=== PATIENT | female | born 1990 | race Caucasian/White ===

== ENCOUNTER 2020-07-07 21:21 | Inpatient (IN) | payer OTHER ==
--- OUTSIDE RECORDS SUMMARY | 2020-07-07 21:26 | XMS ---
:1990 Author Organization [facility] Support Name Relationship Address Phone UE, UNEMPLOYED Unavailable Unavailable Unavailable UE Unavailable Unavailable Unavailable KALYANI AHN [employer]NER [address] [address] [address] [address] [place] [address] EDGAR ERVIN SISTER [address] [facility] [address] [place] [address] AZAR ERVIN SI Unavailable Unavailable NA Unavailable [place] [address] [place] [address] edgar ervin Unavailable [address] [place] [address] Re-disclosure Warning The records that you are about to access may contain information from federally- assisted alcohol or drug abuse programs. If such information is present, then the following federally mandated warning applies: This information has been disclosed to you from records protected by federal confidentiality rules (42 CFR part 2). The federal rules prohibit you from making any further disclosure of this information unless further disclosure is expressly permitted by the written consent of the person to whom it pertains or as otherwise permitted by 42 CFR part 2. A general authorization for the release of medical or other information is NOT sufficient for this purpose. The Federal rules restrict any use of the information to criminally investigate or prosecute any alcohol or drug abuse patient.The records that you are about to access may contain highly sensitive health information, the redisclosure of which is protected by Article 27-F of the [facility] Public Health law. If you continue you may haveaccess to information: Regarding HIV / AIDS; Provided by facilities licensed or operated by the [facility] Office of Mental Health; or Provided by the [facility] Office for People With Developmental Disabilities. If such information is present, then the following [facility] mandated warning applies: This information has been disclosed to you from confidential records which are protected by state law. State law prohibits you from making any further disclosure of this information without the specific written consent of the person to whom it pertains, or as otherwise permitted by law. Any unauthorized further disclosure in violation of state law may result in a fine or skilled nursing sentence or both. A general authorization for the release of medical or other information is NOT sufficient authorization for further disclosure. Allergies and Adverse Reactions Type Description Substance Reaction Status Data Source(s ) No Known No Known Allergies No Known eCW3 ( [place] [facility]) No Known No Known Allergies No Known eCW3 ( [place] [facility]) Encounters Encounter Providers Location Date Indications Data Source(s ) Emergency H 04/17/2019 [facility] 03:15:00 PM Medical Cente r EDT Outpatient [facility] 01/23/2019 eCW3 ([facility] A28 12:00:00 AM [facility]) EDT - 01/23/2019 12:00:00 AM EDT Outpatient [facility] 12/23/2018 eCW3 ([facility] A28 12:00:00 AM [facility]) EDT - 12/23/2018 12:00:00 AM EDT Emergency 09/25/2018 [facility] 10:28:00 AM Medical Cente r EST Immunizations Vaccine Date Status Description Data Source(s) Tdap 09/25/2018 01:19:00 PM EST completed S [facility] Medications Medication Brand Start Product Dose Route Administrative [facility] Indications Reaction Description Data Name Date Form Instructions Instructions Source(s) Betamethaso Clotri .0 active Clotrim azole eCW3 ne 0.5 mazole 2018 {appl -Betamethaso (H udson MG/ML / -Betam 12:00: icati ne 1-0.05 % [place] Clotrimazol ethaso 00 AM on_to Heal th e 10 MG/ML ne EDT _affe Care) Topical 1-0.05 cted_ Cream % area} Clotrimazol e-Betametha sone 1-0.05 % Betamethaso Clotri .0 active Clotrim azole eCW3 ne 0.5 mazole 2018 {appl -Betamethaso (H udson MG/ML / -Betam 12:00: icati ne 1-0.05 % [facility] Clotrimazol ethaso 00 AM on_to Heal th e 10 MG/ML ne EDT _affe Care) Topical 1-0.05 cted_ Cream % area} Clotrimazol e-Betametha sone 1-0.05 % Azithromyci Azithr 12/23/ suspend Azithr omycin eCW3 n 250 MG omycin 2018 ed 250 MG (Méndez Oral Tablet 250 MG 12:00: Rive r AM Health EDT Care) Norgestim-E Norges .0 active Norgest im-Et eCW3 Estrad 2018 {tabl h Estrad (Hu dson Triphasic h 12:00: et} Triphasic Juliano er 0.18/0.215/ Estrad 00 AM 0.18/0.215 /0 Health 0.25 MG-25 Tripha EDT .25 MG-25 Ca re) MCG sic MCG 0.18/0 .215/0 .25 MG-25 MCG Benadryl Benadr 12/23/ suspend Benadryl eCW3 Allergy 25 yl 2018 ed Allergy 25 (Hu dson MG Allerg 12:00: MG River y 25 00 AM Health EDT Care) Benadryl Benadr 12/23/ suspend Benadryl eCW3 Allergy 25 yl 2019 ed Allergy 25 (Hu dson MG Allerg 12:00: MG [place] y 25 00 AM Health EDT Care) Norgestim-E Norges .0 active Norgest im-Et eCW3 Estrad 2018 {tabl h Estrad (Hu dson Triphasic h 12:00: et} Triphasic Juliano er 0.18/0.215/ Estrad 00 AM 0.18/0.215 /0 Health 0.25 MG-25 Tripha EDT .25 MG-25 Ca re) MCG sic MCG 0.18/0 .215/0 .25 MG-25 MCG Azithromyci Azithr 12/23/ suspend Azithr omycin eCW3 n 250 MG omycin 2018 ed 250 MG (Méndez Oral Tablet 250 MG 12:00: Rive r AM Health EDT Care) Norelgestro UNK .0 suspend Norelges trom eCW3 min-Eth 2017 {patc ed in-Eth (Méndez Estradiol 12:00: h_to_ Estradiol Ri te 150-35 00 AM skin} 150-35 Health MCG/24HR EDT MCG/24HR Care) Norelgestro UNK .0 suspend Norelges trom eCW3 min-Eth 2017 {patc ed in-Eth (Méndez Estradiol 12:00: h_to_ Estradiol Ri te 150-35 00 AM skin} 150-35 Health MCG/24HR EDT MCG/24HR Care) Amoxicillin Amoxic .0 suspend Amoxic illin eCW3 500 MG Oral illin 2017 {caps ed 500 MG (Hud son Capsule 500 MG 12:00: ule} River 00 AM Health EST Care) Amoxicillin Amoxic .0 suspend Amoxic illin eCW3 500 MG Oral illin 2017 {caps ed 500 MG (Hud son Capsule 500 MG 12:00: ule} [facility] 00 AM Health EST Care) CVS Iron CVS .0 suspend CVS Iron 32 5 eCW3 325 (65 Fe) Iron 2016 {tabl ed (65 Fe) MG ( Méndez MG 325 12:00: et} [facility] (65 00 AM Health Fe) MG EST Care) CVS Iron CVS .0 suspend CVS Iron 32 5 eCW3 325 (65 Fe) Iron 2016 {tabl ed (65 Fe) MG ( Méndez MG 325 12:00: et} [facility] (65 00 AM Health Fe) MG EST Care) Prenat .0 suspend eCW3 Vitamins al 2015 {tabl ed Vitamins (Hudso n 28-0.8 MG Vitami 12:00: et} 28-0.8 MG R iver ns 00 AM Health 28-0.8 EDT Care) MG Prenat .0 suspend eCW3 Vitamins al 2015 {tabl ed Vitamins (Hudso n 28-0.8 MG Vitami 12:00: et} 28-0.8 MG R iver ns 00 AM Health 28-0.8 EDT Care) MG ferrous Ferrou .0 suspend Ferrous eC W3 sulfate 325 s 2013 {tabl ed Sulfate 325 (Méndez MG Oral Sulfat 12:00: et} (65 Fe) MG Ri te Tablet e 325 00 AM Health Ferrous (65 EST Care) Sulfate 325 Fe) MG (65 Fe) MG ferrous Ferrou .0 suspend Ferrous eC W3 sulfate 325 s 2013 {tabl ed Sulfate 325 (Méndez MG Oral Sulfat 12:00: et} (65 Fe) MG Ri te Tablet e 325 00 AM Health Ferrous (65 EST Care) Sulfate 325 Fe) MG (65 Fe) MG Meclizine Mecliz .0 suspend Meclizin e eCW3 Hydrochlori ine 2013 {tabl ed HCl 25 MG (H udson de 25 MG HCl 25 12:00: et_as [facility] Oral Tablet MG 00 AM _need Health Meclizine EST ed} Care) HCl 25 MG Omeprazole Omepra .0 suspend Omepraz ole eCW3 20 MG zole 2013 {tabl ed 20 mg (Méndez Delayed 20 mg 12:00: et} [place] Release 00 AM Health Oral Tablet EST Care) Omeprazole 20 mg Meclizine Mecliz .0 suspend Meclizin e eCW3 Hydrochlori ine 2013 {tabl ed HCl 25 MG (H udson de 25 MG HCl 25 12:00: et_as [place] Oral Tablet MG 00 AM _need Health Meclizine EST ed} Care) HCl 25 MG Omeprazole Omepra .0 suspend Omepraz ole eCW3 20 MG zole 2013 {tabl ed 20 mg (Méndez Delayed 20 mg 12:00: et} [place] Release 00 AM Health Oral Tablet EST Care) Omeprazole 20 mg Cephalexin cephal 1 complet July t 500 MG Oral exin ed Chet Capsule 500 mg Medical cephalexin Capsul Center 500 mg e, Capsule, Ordere Ordered By: d By: Abiel Blancas, feli FNPDirectio Yonny, ns: 1 FNPDir capsule ection oral twice s: 1 a day capsul e oral twice a day Amoxicillin amoxic 1 complet Misbah nt 500 MG Oral illin ed Chet Capsule 500 mg Medical amoxicillin Capsul Center 500 mg e, Capsule, Ordere Ordered By: d By: Jermaine Bg Kishor d Isreal, Kishor MDDirection Kirkwo s: 1 od, capsule MDDire oral every ctions eight hours : 1 capsul e oral every eight hours Acetaminoph acetam 2 complet Tylenol Saint en 325 MG inophe ed Chet Oral Tablet n Medical [Tylenol] (Tylen Center acetaminoph ol) en 325 mg (Tylenol) Tablet 325 mg , Tablet, Ordere Ordered By: d By: Kishor Wynn MDDirection Kirkwo s: 2 tablet od, oral every MDDire six hours ctions PRN pain : 2 tablet oral every six hours PRN pain Insurance Providers Payer name Policy type Policy ID Covered Covered democrat's Policy P divina / Coverage democrat ID relationship to Uriostegui Inf ormation type uriostegui MVP [place] [id number] [place] [id number] HMO O MVP/HHP O [id number] 01 [id number] [id number] S [id number] Vision D Warren [facility] [id number] S [id number] 1 Options [facility] [id number] S [id number] 1 [facility]FS [facility] [id number] S [id number] 01 Managed Care Medicaid [id number] S [id number] Regular Clinic Visit Problems, Conditions, and Diagnoses Code Display Name Description Problem Type Effective Data Sour ce(s) Dates E66.9 Obesity Obesity Problem 08/06/2017 eCW3 ([place] 12:00:00 [facility]) N83.202 Cyst of left Ovarian cyst, Problem 08/06/2017 eCW3 ([facility] son ovary left 12:00:00 [facility]) 268.9 Vitamin D Vitamin D Problem 10/04/2014 eCW3 ([place] deficiency deficiency 12:00:00 [facility]) 280.9 Iron deficiency Iron deficiency Problem 10/04/2014 eCW3 ([place] anemia anemia 12:00:00 [facility]) 493.90 Asthma Asthma Problem eCW3 ([facility]) 477.8 Allergic rhinitis ALLERGIC RHINITIS Problem eCW3 ([facility]) 626.4 Irregular Irregular Problem eCW3 ([place] menstrual cycle menstrual cycle [facility]) 789.09 Abdominal pain Abdominal pain, Problem eCW3 ([place] other specified [facility] Care) 278.00 Obesity OBESITY NOS Problem eCW3 ([facility]) Z3A.01 Less than 8 weeks LESS THAN 8 WEEKS Diagnosis 04/17/2019 [facility] gestation of GESTATION OF 03:15:00 PM Medical C enter EDT O26.891 Other specified OTH Diagnosis 04/17/2019 [facility] related RELATED 03:15:00 PM Medica l Center conditions, first CONDITIONS, FIRST EDT trimester TRIMESTER R10.30 Lower abdominal LOWER ABDOMINAL Diagnosis 04/17/2019 [facility] pain, unspecified PAIN, UNSPECIFIED 03:15:00 PM Medical Center EDT 599.0 URINARY TRACT URIN TRACT Diagnosis 12/12/2018 FREYA (M beny INFECTION SITE INFECTION 03:57:19 PM Abiel NOT SPECIFIED EST [facility]) J45.909 Unspecified UNSPECIFIED Diagnosis 09/25/2018 [facility]ino asthma, ASTHMA, 10:28:00 AM Medical Cente r uncomplicated UNCOMPLICATED EST Y99.9 Unspecified UNSPECIFIED Diagnosis 09/25/2018 [facility] external cause EXTERNAL CAUSE 10:28:00 AM Medic al Center status STATUS EST Y92.512 Supermarket, SUPERMARKET, Diagnosis 09/25/2018 [facility] [employer] store or market STORE OR MARKET 10:28:00 AM Med ical Center as the place of PLACE EST occurrence of the external cause Y93.9 Activity, ACTIVITY, Diagnosis 09/25/2018 [facility] unspecified UNSPECIFIED 10:28:[address] EST W23.1XXA Caught, crushed, CAUGHT, CRUSH, Diagnosis 09/25/2018 July dayana [facility] jammed, or JAMMED, OR 10:28:00 AM Medical Cente r pinched between PINCHED BETW EST stationary STATIONRY OBJ, objects, initial INIT encounter S61.311A Laceration LACERATION W/O FB Diagnosis 09/25/2018 [facility] Hinosn osephs without foreign OF L IDX FNGR W 10:28:00 AM Med ical Center body of left DAMAGE TO NAIL, EST index finger with INIT damage to nail, initial encounter Results ID Date Data Source Urinalysis.[id number] 04/17/2019 04:17:00 PM EDT [facility] 0 Name Value Range Interpretation Description Data Sup porting Code Source(s) Document(s ) Color of Urine YELLOW <content Saint styleCode="Gregor Chet d">Color, Medical Urine Center </content>YELL OW <content styleCode="Svetlana lics"> (YELLOW )</content> UNK CLEAR <content Saint styleCode="Gregor Chet d">Urine Medical Clarity Center </content>DANIEL R <content styleCode="Svetlana lics"> (CLEAR )</content> Specific 1.015-1.02 Below low normal <content Saint gravity of 5 styleCode="Gregor Chet Urine by Test d">Urine Medical strip Specific Center [place] </content><= 1.005 L<content styleCode="Svetlana lics"> (1.015-1.025 )</content> Glucose NEGATIVE <content Saint [Mass/volume] styleCode="Gregor Chet in Urine by d">Urine Medical Test strip Glucose Center </content>NEGA TIVE MG/DL<content styleCode="Svetlana lics"> (NEGATIVE MG/DL)</conten t> UNK NEGATIVE <content Saint styleCode="Gregor Chet d">Urine Medical Bilirubin Center </content>NEGA TIVE <content styleCode="Svetlana lics"> (NEGATIVE )</content> Ketones NEGATIVE <content Saint [Mass/volume] styleCode="Gregor Chet in Urine by d">Urine Medical Test strip Ketone Center </content>NEGA TIVE MG/DL<content styleCode="Svetlana lics"> (NEGATIVE MG/DL)</conten t> Hemoglobin NEGATIVE <content Saint [Presence] in styleCode="Gregor Chet Urine by Test d">Urine Blood Medical strip </content>NEGA Center TIVE <content styleCode="Svetlana lics"> (NEGATIVE )</content> Leukocyte NEGATIVE <content Saint esterase styleCode="Gregor Chet [Presence] in d">Urine Medical Urine by Test Leukocyte Center strip </content>NEGA TIVE <content styleCode="Svetlana lics"> (NEGATIVE )</content> Urobilinogen 0.2-1.0 <content Saint [Units/volume] styleCode="Gregor Chet in Urine by d">Urine Medical Test strip Urobilinogen Center </content>1.0 MG/DL<content styleCode="Svetlana lics"> (0.2-1.0 MG/DL)</conten t> Protein NEGATIVE <content Saint [Mass/volume] styleCode="Gregor [facility] in Urine by d">Urine Medical Test strip Protein Center </content>NEGA TIVE MG/DL<content styleCode="Svetlana lics"> (NEGATIVE MG/DL)</conten t> Nitrite NEGATIVE <content Saint [Presence] in styleCode="Gregor Rosenberg Urine by Test d">Urine Medical strip Nitrite Center </content>NEGA TIVE <content styleCode="Svetlana lics"> (NEGATIVE )</content> pH of Urine by 4.5-8.0 <content Saint Test strip styleCode="Gregor Daviss d">Urine pH Medical </content>6.0 Center <content styleCode="Svetlana lics"> (4.5-8.0 )</content> ID Date Data Source Liver 04/17/2019 04:17:00 PM EDT [facility] Profile.[id number] Name Value Range Interpretation Description Data Sup porting Code Source(s) Document(s ) Aspartate 14-36 <content [facility] aminotransferase styleCode="Bold"> Luis hs [Enzymatic Aspartate Medical activity/volume] Aminotransferase Center in Serum or Plasma (AST) </content>36 IU/L<content styleCode="Italic s"> (14-36 IU/L)</content> Alanine 7-30 <content [facility] aminotransferase styleCode="Bold"> Luis hs [Enzymatic Alanine Medical activity/volume] Aminotransferase Center in Serum or Plasma (ALT) </content>12 IU/L<content styleCode="Italic s"> (7-30 IU/L)</content> Albumin 3.5-5.0 <content Saint [Mass/volume] in styleCode="Bold"> Luis hs Serum or Plasma Albumin Medical </content>4.3 Center G/DL<content styleCode="Italic s"> (3.5-5.0 G/DL)</content> Alkaline 38-126 <content [facility] phosphatase styleCode="Bold"> Chet [Enzymatic Alkaline Medical activity/volume] Phosphatase (ALP) Cente r in Serum or Plasma </content>62 IU/L<content styleCode="Italic s"> (38-126 IU/L)</content> Bilirubin.total 0.2-1.3 <content Saint [Mass/volume] in styleCode="Bold"> Luis hs Serum or Plasma Bilirubin Total Medical </content>0.8 Center MG/DL<content styleCode="Italic s"> (0.2-1.3 MG/DL)</content> UNK 0.0-0.3 <content Saint styleCode="Bold"> Chet Bilirubin, Direct Medical </content>< 0.2 Center MG/DL<content styleCode="Italic s"> (0.0-0.3 MG/DL)</content> ID Date Data Source HematologyRou.[id number] 04/17/2019 04:17:00 PM EDT Misbah nt [facility] 0400 Name Value Range Interpretation Description Data Sup porting Code Source(s) Document(s ) Erythrocyte mean 26.0-34. <content [facility] corpuscular 0 styleCode="Bold Chet hemoglobin ">Mean Medical [Entitic mass] Corposcular Center by Automated Hemoglobin count </content>27.8 PG<content styleCode="Ital ics"> (26.0-34.0 PG)</content> Leukocytes 4.4-11.0 <content Saint [#/volume] in styleCode="Bold Chet Blood by ">White Blood Medical Automated count Cell Count Center </content>9.44 KCUMM<content styleCode="Ital ics"> (4.4-11.0 KCUMM)</content > Hematocrit 36.0-46. Below low normal <content Saint [Volume 0 styleCode="Bold Chet Fraction] of ">Hematocrit Medical Blood by </content>34.9 Center Automated count % L<content styleCode="Ital ics"> (36.0-46.0 %)</content> Erythrocyte mean 80.0-100 <content Saint corpuscular .0 styleCode="Bold Chet volume [Entitic ">Mean Medical volume] by Corpuscular Center Automated count Volume </content>81.5 FL<content styleCode="Ital ics"> (80.0-100.0 FL)</content> Erythrocytes 4.0-5.1 <content Saint [#/volume] in styleCode="Bold Chet Blood by ">Red Blood Medical Automated count Cell Count Center </content>4.28 MCUMM<content styleCode="Ital ics"> (4.0-5.1 MCUMM)</content > Hemoglobin 12.3-16. Below low normal <content Saint [Mass/volume] in 0 styleCode="Bold Chet Blood ">Hemoglobin Medical </content>11.9 Center G/DL L<content styleCode="Ital ics"> (12.3-16.0 G/DL)</content> Erythrocyte mean 32.0-37. <content [facility] corpuscular 0 styleCode="Bold Chet hemoglobin ">Mean Corpus. Medical concentration Hgb Center [Mass/volume] by Concentration Automated count (MCHC) </content>34.1 G/DL<content styleCode="Ital ics"> (32.0-37.0 G/DL)</content> Platelet mean 8.0-11.0 Above high <content Saint volume [Entitic normal styleCode="Bold Chet volume] in Blood ">Mean Platelet Medical by Automated Volume Center count </content>12.4 FL H<content styleCode="Ital ics"> (8.0-11.0 FL)</content> UNK 0 <content Saint styleCode="Bold Chet ">Nucleated Red Medical Blood Cell Center </content>0.0 /100<content styleCode="Ital ics"> (0 /100)</content> Platelets 130-400 <content Saint [#/volume] in styleCode="Bold Chet Blood by ">Platelet Medical Automated count Count Center </content>158 KCUMM<content styleCode="Ital ics"> (130-400 KCUMM)</content > Erythrocyte 11.5-14. <content Saint distribution 5 styleCode="Bold Chet width [Ratio] by ">Red Cell Medical Automated count Distribution Center Width </content>14.0 %<content styleCode="Ital ics"> (11.5-14.5 %)</content> UNK 0.0 <content Saint styleCode="Bold Chet ">Nucleated Red Medical Blood Cell Center Count </content>0.00 KCUMM<content styleCode="Ital ics"> (0.0 KCUMM)</content > UNK 1.6-4.9 Above high <content Saint normal styleCode="Bold Chet ">Immature Medical Platelet Center Fraction </content>10.3 % H<content styleCode="Ital ics"> (1.6-4.9 %)</content> ID Date Data Source GFR(Creatinine).[id number] 04/17/2019 04:17:00 PM EDT [facility] 0-0400 Name Value Range Interpretation Code Description Data Venecia rce(s) Supporting Document(s ) UNK > 60 <content [facility] styleCode="Bold"> Medical Cent er EGFR </content>127 GFR<content styleCode="Italic s"> (> 60 GFR)</content> ID Date Data Source STEVEMROUTINECCDA.[id number] 04/17/2019 04:17:00 PM EDT [facility] -0400 Name Value Range Interpretation Description Data Sup porting Code Source(s) Document(s ) UNK 30-110 <content Chet styleCode="Bold Medical ">Amylase Center </content>76 IU/L<content styleCode="Ital ics"> (30-110 IU/L)</content> Lipase 23-300 <content [facility] [Enzymatic styleCode="Bold Medical activity/vo ">Lipase Center lume] in </content>165 Serum or IU/L<content Plasma styleCode="Ital ics"> (23-300 IU/L)</content> ID Date Data Source [facility].[id number] 04/17/2019 04:17:00 PM EDT [facility] Name Value Range Interpretation Description Data Sup porting Code Source(s) Document(s ) Sodium 137-145 <content Saint [Moles/volume] in styleCode="Bold"> Hong phs Serum or Plasma Sodium Medical </content>138 Center MEQ/L<content styleCode="Italic s"> (137-145 MEQ/L)</content> Carbon dioxide, 22-30 <content [facility] total styleCode="Bold"> Chet [Moles/volume] in Carbon Dioxide Medical Serum or Plasma </content>23 Center MEQ/L<content styleCode="Italic s"> (22-30 MEQ/L)</content> Potassium <content Saint [Moles/volume] in styleCode="Bold"> Hong [facility] Serum or Plasma Potassium Medical </content>Test Center not performed. MEQ/L (Reference Range: not available)
Chloride 98-107 <content Saint [Moles/volume] in styleCode="Bold"> Hong phs Serum or Plasma Chloride Medical </content>105 Center MEQ/L<content styleCode="Italic s"> (98-107 MEQ/L)</content> Creatinine 0.5-1.3 <content Saint [Mass/volume] in styleCode="Bold"> Luis hs Serum or Plasma Creatinine Medical </content>0.6 Center MG/DL<content styleCode="Italic s"> (0.5-1.3 MG/DL)</content> UNK 7-17 <content Saint styleCode="Bold"> Chet BUN </content>12 Medical MG/DL<content Center styleCode="Italic s"> (7-17 MG/DL)</content> Alanine 7-30 <content [facility] aminotransferase styleCode="Bold"> Luis hs [Enzymatic Alanine Medical activity/volume] Aminotransferase Center in Serum or Plasma (ALT) </content>12 IU/L<content styleCode="Italic s"> (7-30 IU/L)</content> Calcium 8.4-10. <content Saint [Mass/volume] in 2 styleCode="Bold"> Luis hs Serum or Plasma Calcium Medical </content>9.5 Center MG/DL<content styleCode="Italic s"> (8.4-10.2 MG/DL)</content> Alkaline 38-126 <content [facility] phosphatase styleCode="Bold"> Chet [Enzymatic Alkaline Medical activity/volume] Phosphatase (ALP) Cente r in Serum or Plasma </content>62 IU/L<content styleCode="Italic s"> (38-126 IU/L)</content> Aspartate 14-36 <content [facility] aminotransferase styleCode="Bold"> Luis hs [Enzymatic Aspartate Medical activity/volume] Aminotransferase Center in Serum or Plasma (AST) </content>36 IU/L<content styleCode="Italic s"> (14-36 IU/L)</content> UNK > 60 <content Saint styleCode="Bold"> Chet EGFR Medical </content>127 Center GFR<content styleCode="Italic s"> (> 60 GFR)</content> Glucose 74-106 <content Saint [Mass/volume] in styleCode="Bold"> Luis hs Serum or Plasma Glucose Medical </content>85 Center MG/DL<content styleCode="Italic s"> (74-106 MG/DL)</content> Albumin 3.5-5.0 <content Saint [Mass/volume] in styleCode="Bold"> Luis hs Serum or Plasma Albumin Medical </content>4.3 Center G/DL<content styleCode="Italic s"> (3.5-5.0 G/DL)</content> Bilirubin.total 0.2-1.3 <content Saint [Mass/volume] in styleCode="Bold"> Luis hs Serum or Plasma Bilirubin Total Medical </content>0.8 Center MG/DL<content styleCode="Italic s"> (0.2-1.3 MG/DL)</content> Procedure Social History Code Duration Value Status Description Data Source(s ) Smoking 04/17/2019 Denies Ever completed Denies Ever Smoked [facility] 03:48:00 PM EDT Smoked Medical C enter Smoking 04/17/2019 Denies Ever completed Denies Ever Smoked [facility] 03:22:00 PM EDT Smoked Medical C enter Smoking 04/17/2019 Denies Ever completed Denies Ever Smoked [facility] 03:22:00 PM EDT Smoked Medical C enter Smoking 01/23/2019 Never Smoker completed Never Smoker eCW3 ([place] [facility] 12:00:00 AM [facility]) Smoking 01/23/2019 Never Smoker completed Never Smoker eCW3 ([place] 12:[facility]:00 AM [facility]) Smoking 09/25/2018 Denies Ever completed Denies Ever Smoked [facility] 01:08:00 PM EST Smoked Medical C enter Smoking 09/25/2018 Denies Ever completed Denies Ever Smoked [facility] 10:50:00 AM EST Smoked Medical C enter Smoking 09/13/2018 Denies Ever completed Denies Ever Smoked [facility] 10:55:00 AM EST Smoked Medical C enter Smoking 09/13/2018 Denies Ever completed Denies Ever Smoked [facility] 10:33:00 AM EST Smoked Medical C enter Never Smoker completed Never Smoker [facility]CW[facility] Never Smoker completed Never Smoker eCW3 ([facility]) Vital Signs ID Date Data Source UNK Name Value Range Interpretation Code Description Data Source(s) Body temperature 36.310355 36.253669 [facility] Respiratory rate 20 /min 20 /min [facility] Heart rate 75 /min 75 /min [facility] Diastolic blood 56 mm[Hg] 56 mm[Hg] [facility] Systolic blood 109 mm[Hg] 109 mm[Hg] [facility] Body weight 86.692514 kg 86.973757 kg [facility] Body temperature 36.654075 36.921162 [facility] Respiratory rate 18 /min 18 /min [facility] Oxygen saturation 99 % 99 % [facility] in Arterial blood [facility] Center by Pulse oximetry Heart rate 86 /min 86 /min [facility] Body height 164.241151 164.838312 cm [facility] Diastolic blood 70 mm[Hg] 70 mm[Hg] [facility] pressure Medical Center Systolic blood 133 mm[Hg] 133 mm[Hg] [facility] Body mass index 31.5 kg/m2 31.5 kg/m2 [facility] (BMI) [Ratio] [facility] Diastolic blood 72 mm[Hg] 72 mm[Hg] eCW3 ([facility]) Systolic blood 112 mm[Hg] 112 mm[Hg] eCW3 ([facility]) Body temperature 98.4 [degF] 98.4 [degF] eCW3 ( [facility]) Body mass index 34.89 kg/m2 34.89 kg/m2 eCW3 ([facility] (BMI) [Ratio] [facility]) Body weight 197 [lb_av] 197 [lb_av] eCW3 ([facility]) Body height 63 [in_i] 63 [in_i] eCW3 ([facility]) Diastolic blood 70 mm[Hg] 70 mm[Hg] eCW3 ([facility]) Systolic blood 118 mm[Hg] 118 mm[Hg] eCW3 ([facility]) Body temperature 98.2 [degF] 98.2 [degF] eCW3 ( [facility]) Body mass index 36.31 kg/m2 36.31 kg/m2 eCW3 ([facility] (BMI) [Ratio] [facility]) Body weight 205 [lb_av] 205 [lb_av] eCW3 ([facility]) Body height 63 [in_i] 63 [in_i] eCW3 ([facility]) Body weight 86.668794 kg 86.451104 kg [facility] Body temperature 36.506204 36.338201 [facility] Respiratory rate 17 /min 17 /min [facility] Oxygen saturation 100 % 100 % [facility] in Arterial blood [facility] Center by Pulse oximetry Heart rate 79 /min 79 /min [facility] Body height 165.819622 165.182803 cm [facility] Diastolic blood 70 mm[Hg] 70 mm[Hg] [facility] pressure Medical Center Systolic blood 138 mm[Hg] 138 mm[Hg] [facility] pressure [facility] Center Body mass index 31.6 kg/m2 31.6 kg/m2 [facility] [place] (BMI) [Ratio] [facility] Body weight 65.406082 kg 65.552896 kg [facility] Measured Medical Center Body temperature 36.509227 36.251729 [facility] Respiratory rate 18 /min 18 /min [facility] Deprecated Oxygen 98 % 98 % [facility] saturation in [facility] Capillary blood by Oximetry Heart rate 65 /min 65 /min [facility] Body height 160.514536 160.483386 cm [facility] cm Medical Center Systolic blood 65 mm[Hg] 65 mm[Hg] [facility] pressure [facility] Center Diastolic blood 138 mm[Hg] 138 mm[Hg] [facility] pressure [facility] Center Body mass index 25.6 kg/m2 25.6 kg/m2 [facility] (BMI) [Ratio] [facility] Patient Treatment Plan of Care Planned Activity Planned Date Details Description Data Source (s) Betamethasone 0.5 MG/ML / 01/23/2019 12:00:00 eCW3 ([facility] Clotrimazole 10 MG/ML [facility]) Topical Cream Betamethasone 0.5 MG/ML / 01/23/2019 12:00:00 eCW3 ([facility] Clotrimazole 10 MG/ML [facility]) Topical Cream Amoxicillin 500 MG Oral July t [facility] Medical Capsule Center Acetaminophen 325 MG Oral Sa int [facility] Medical Tablet [Tylenol] Center Cephalexin 500 MG Oral [facility] Capsule [place]
--- NOTE | 2020-07-07 21:54 | PD.OB.PROG ---
Past Medical History - Primary Care Physician Documenting Provider Type: Laborist - Admission Chief Complaint: 40.3 weeks . pelvic pain History Source: Patient Limitations to Obtaining History: No Limitations - Nursing Documentation Maternal Triage Index: Maternal Triage Index ( Priority 3, Prompt MFTI) Nursing Documentation Reviewed: Yes - Past Medical History ...: 6 ...Para: 2 ...Term: 2 ...: 0 ...Spon : 0 ...Induced : 3 ...Living Children: 2 ...LMP: 09/30/20 ... Weeks Gestation by Dates: 39.5 ...EDC by Dates: 07/09/20 ...EDC by Sono: 07/04/20 - Past Surgical History Past Surgical History: Yes: None - Smoking History Smoking history: Never smoked Have you smoked in the past 12 months: No Aproximately how many cigarettes per day: 0 - Alcohol/Substance Use Hx Alcohol Use: No History of Substance Use: reports: None - Social History Usual Living Arrangement: With Spouse History of Recent Travel: No Review of Systems - Review of Systems Constitutional: reports: No Symptoms Eyes: reports: No Symptoms HENT: reports: No Symptoms Neck: reports: No Symptoms Cardiovascular: reports: No Symptoms Respiratory: reports: No Symptoms Gastrointestinal: reports: No Symptoms Genitourinary: reports: No Symptoms Breasts: reports: No Symptoms Reported Musculoskeletal: reports: No Symptoms Integumentary: reports: No Symptoms Neurological: reports: No Symptoms Endocrine: reports: No Symptoms Hematology/Lymphatic: reports: No Symptoms Psychiatric: reports: No Symptoms Physical Exam - Obstetrical Constitutional: Yes: Well Nourished, No Distress, Calm Eyes: Yes: WNL, Conjunctiva Clear, EOM Intact HENT: Yes: WNL, Atraumatic, Normocephalic Neck: Yes: WNL, Supple, Trachea Midline Cardiovascular: Yes: WNL, Regular Rate and Rhythm Lungs: Clear to auscultation Breast(s): Yes: WNL - Abdominal Exam/OB Fundal Height: 38 Number of Fetuses: Single Presentation: Vertex Regularity: Irritability Intensity: Mild Monitor Mode: External Heart Rate Location: [facility] Category: I Accelerations: Non-Uniform Decelerations: None - Vaginal Exam/OB Vaginal Exam Deferred: No Vaginal Bleeding: No Speculum Exam: No Dilatation (cm): 2 cm Effacement (%): 80 Amniotic Membrane Status: Intact Nitrazine Test: Negative Presentation: Vertex/Position Station: -3 - Physical Exam Musculoskeletal: Yes: WNL Extremities: Yes: WNL Edema: Yes Edema: LLE: Trace, RLE: Trace Deep Tendon Reflex Grade: Normal +2 Problem List - Problems (1) , post-term Code(s): O48.0 - POST-TERM (2) Abdominal pain affecting Code(s): O26.899 - OTH RELATED CONDITIONS, UNSPECIFIED TRIMESTER; R10.9 - UNSPECIFIED ABDOMINAL PAIN Assessment/Plan fhr cat 1
[2020-07-07] MEDS ORDERED: DINOPROSTONE 10 MG VAGINAL SUPPOSITORY VG ONE (22:38)
[2020-07-07] MEDS ORDERED: PROMETHAZINE HCL 25 MG/1 ML VIAL IVPUSH ONE (22:40)
[2020-07-07] MEDS ORDERED: BUTORPHANOL TARTRATE 1 MG/ML VIAL IVPUSH PRN (22:40)
[2020-07-07] MEDS ORDERED: DEXTROSE 5%-LACTATED RINGERS 1,000 ML IV SCH (22:45)
--- NOTE | 2020-07-07 22:47 | HP ---
Past Medical History - Primary Care Physician PCP:: Anand Rodriguez - Admission Chief Complaint: 40.3 weeks,for cervidil induction History of Present Illness: 30 yo f 032 40.3 weeks, c/o low abdominal pressure and pain , cx 2 cm 70 vx -3 mi, fhr cat 1, no contraction patient requesting to be induced , does not want to go home, cervidil risks discussed History Source: Patient Limitations to Obtaining History: No Limitations - Past Medical History ...: 6 ...Para: 2 ...Term: 2 ...: 0 ...Spon : 0 ...Induced : 3 ...Living Children: 2 ...LMP: 09/30/20 ... Weeks Gestation by Dates: 39.5 ...EDC by Dates: 07/09/20 ...EDC by Sono: 07/04/20 Heme/Onc: Yes: Anemia (had blood transfusion after her last misscarige) - Past Surgical History Past Surgical History: Yes: None Hx Myomectomy: No Hx Transabdominal Cerclage: No - Smoking History Smoking history: Never smoked Have you smoked in the past 12 months: No Aproximately how many cigarettes per day: 0 - Alcohol/Substance Use Hx Alcohol Use: No History of Substance Use: reports: None - Social History Usual Living Arrangement: Yes: With Spouse History of Recent Travel: No Home Medications - Allergies Allergies/Adverse Reactions: Allergies Allergy/AdvReac Type Severity Reaction Status Date / Time No Known Allergies Allergy Verified 07/06/20 08:43 - Home Medications Home Medications: Ambulatory Orders Tablet 1 tab PO DAILY 07/06/20 Review of Systems - Review of Systems Constitutional: reports: No Symptoms Eyes: reports: No Symptoms HENT: reports: No Symptoms Neck: reports: No Symptoms Cardiovascular: reports: No Symptoms Respiratory: reports: No Symptoms Gastrointestinal: reports: No Symptoms Genitourinary: reports: No Symptoms Breasts: reports: No Symptoms Reported Musculoskeletal: reports: No Symptoms Integumentary: reports: No Symptoms Neurological: reports: No Symptoms Endocrine: reports: No Symptoms Hematology/Lymphatic: reports: No Symptoms Psychiatric: reports: No Symptoms Physical Exam - Maternity Constitutional: Yes: Well Nourished, No Distress, Obese Eyes: Yes: WNL HENT: Yes: WNL Neck: Yes: WNL Cardiovascular: Yes: WNL Breast(s): Yes: WNL - Abdominal Exam/OB Fundal Height: 38 Number of Fetuses: Single Presentation: Vertex Contractions: No Regularity: Irritability Intensity: Unaware Monitor Mode: External Heart Rate Location: [facility] Category: I Accelerations: Non-Uniform Decelerations: None - Vaginal Exam/OB Vaginal Bleeding: No Speculum Exam: No Dilatation (cm): 2 Effacement (%): 70 Amniotic Membrane Status: Intact Presentation: Vertex/Position Station: -3 - Physical Exam Musculoskeletal: Yes: WNL Extremities: Yes: WNL Edema: LLE: Trace, RLE: Trace Deep Tendon Reflex Grade: Normal +2 Psychiatric: Yes: WNL Hemorrhage Risk Assessment - Risk Factors Medium Risk Factors: Yes: None High Risk Factors: Yes: None Risk Score: 1 Risk Level: Medium Risk Problem List - Problems (1) , post-term Code(s): O48.0 - POST-TERM (2) Abdominal pain affecting Code(s): O26.899 - OTH RELATED CONDITIONS, UNSPECIFIED TRIMESTER; R10.9 - UNSPECIFIED ABDOMINAL PAIN (3) Elective induction of labor planned Code(s): [id number] - Assessment/Plan admit FHM cervidil vs pitocin discussed, risks and benefit discussed
[2020-07-07 23:20] LABS: BASO % 0.1 % (0-2.0); EOS % 0.6 % (0-4.5); HEMATOCRIT 30.2 % (32.4-45.2); HEMOGLOBIN 10.1 GM/dL (10.7-15.3); LYMPH % 15.4 % (8-40); MCH 25.9 pg (25.7-33.7); MCHC 33.5 g/dl (32.0-36.0); MEAN CELL VOLUME 77.3 fl (80-96); MEAN PLT VOLUME 9.9 fl (7.5-11.1); MONO % 5.6 % (3.8-10.2); NEUT % 78.3 % (42.8-82.8); PLATELET COUNT 163 K/MM3 (134-434); RBC 3.91 M/mm3 (3.60-5.2); RDW 16.8 % (11.6-15.6); WHITE BLOOD COUNT 10.4 K/mm3 (4.0-10.0)
[2020-07-07 23:27] LABS: INR 0.91 (0.83-1.09); PROTHROMBIN TIME (PATIENT) 10.7 SEC (9.7-13.0)
[2020-07-07 23:30] LABS: ACTIVATED PTT 24.6 SECONDS (25.2-36.5)
[2020-07-07 23:37] LABS: BLOOD UREA NITROGEN 5.5 mg/dL (7-18); CALCIUM 8.6 mg/dL (8.5-10.1); CREATININE 0.4 mg/dL (0.55-1.3); POTASSIUM 3.4 mmol/L (3.5-5.1)
--- OUTSIDE RECORDS SUMMARY | 2020-07-07 23:47 | XMS ---
:1990 Author Organization [employer] Support Name Relationship Address Phone UE, UNEMPLOYED Unavailable Unavailable Unavailable UE Unavailable Unavailable Unavailable [employer] [address] [facility] [phone] [place] [address] EDGAR ERVIN SISTER [address] [facility] [place] [address] AZAR ERVIN SI Unavailable Unavailable NA Unavailable Un[place] [address] [place] [address] edgar ervin Unavailable [address] [place] [address] Re-disclosure Warning The records that you are [...] is protected by Article 27-F of the [facility] Public Health law. If you continue you may haveaccess to information: Regarding HIV / AIDS; Provided by facilities licensed or operated by the [facility] Office of Mental Health; or Provided by the [facility] Office for People With Developmental Disabilities. If such information is present, then the following [facility] mandated warning applies: This information has been [...] law may result in a fine or longterm sentence or both. A general authorization for the release of medical or other information is NOT sufficient authorization for further disclosure. Allergies and Adverse Reactions Type Description Substance Reaction Status Data Source(s ) No Known No Known Allergies No Known eCW3 ( [facility]) No Known No Known Allergies No Known eCW3 ( [facility]) Encounters Encounter Providers Location Date Indications Data Source(s ) Emergency H 04/17/2019 [facility] 03:15:00 PM Medical Cente r EDT Outpatient [facility] 01/23/2019 eCW3 ([facility] A28 12:00:00 AM [facility]) EDT - 01/23/2019 12:00:00 AM EDT Outpatient [facility] 12/23/2018 eCW3 ([facility] A28 12:00:00 AM [facility]) EDT - 12/23/2018 12:00:00 AM EDT Emergency 09/25/2018 [facility] 10:28:00 AM Medical Cente r EST Immunizations Vaccine Date Status Description Data Source(s) Tdap 09/25/2018 01:19:00 PM EST completed S [facility] Medications Medication Brand Start Product Dose Route Administrative Pharmacy [facility] Indications Reaction Description Data Name Date [...] Uriostegui Inf ormation type uriostegui MVP [place]ICA[place] [id number] SP [id number] HMO O MVP/HHP O [id number] 01 [id number] [address] [id number] S [id number] Vision D Turrell [facility] [id number] S [id number] 1 Options [facility] [id number] S [id number] 1 FFS Medicaid [facility] Medicaid [id number] S [id number] 01 Managed Care Medicaid [id number] S [id number] Regular Clinic Visit Problems, Conditions, and Diagnoses Code Display Name Description Problem Type Effective Data Sour ce(s) Dates E66.9 Obesity Obesity Problem 08/06/2017 eCW3 ([facility] 12:00:00 [facility]) N83.202 Cyst of left Ovarian cyst, Problem 08/06/2017 eCW3 ([facility] son ovary left 12:00:00 [facility]) 268.9 Vitamin D Vitamin D Problem 10/04/2014 eCW3 ([place] deficiency deficiency 12:00:00 [facility]) 280.9 Iron deficiency Iron deficiency Problem 10/04/2014 eCW3 ([facility] anemia anemia 12:00:00 [facility]) 493.90 Asthma Asthma Problem eCW3 ([facility]) 477.8 Allergic rhinitis ALLERGIC RHINITIS Problem eCW3 ([facility]) 626.4 Irregular Irregular Problem eCW3 ([facility] menstrual cycle menstrual cycle [facility]) 789.09 Abdominal pain Abdominal pain, Problem eCW3 ([facility] other specified [facility]) 278.00 Obesity OBESITY NOS Problem eCW3 ([facility]) Z3A.01 Less than 8 weeks LESS THAN [...] INFECTION 03:57:19 PM Abiel NOT SPECIFIED EST [facility]) J45.909 Unspecified UNSPECIFIED Diagnosis 09/25/2018 [facility] asthma, ASTHMA, 10:28:00 AM Medical Cente r uncomplicated UNCOMPLICATED EST Y99.9 Unspecified UNSPECIFIED Diagnosis 09/25/2018 [facility] external cause EXTERNAL CAUSE 10:28:00 AM Medic al Center status STATUS EST Y92.512 Supermarket, SUPERMARKET, Diagnosis 09/25/2018 [facility] [employer] store or market STORE OR MARKET 10:28:00 [...] Laceration LACERATION W/O FB Diagnosis 09/25/2018 [facility] without foreign OF L IDX FNGR W 10:28:00 AM Med ical Center body of left DAMAGE TO NAIL, EST index finger with INIT damage to nail, initial encounter Results ID Date Data Source Urinalysis.[id number] 04/17/2019 04:17:00 PM EDT [facility] 0 Name Value Range Interpretation Description Data [...] by Test d">Urine Medical strip Specific Center [place] </content><= 1.005 L<content styleCode="Svetlana lics"> (1.015-1.025 )</content> [...] Data Source Liver 04/17/2019 04:17:00 PM EDT [facility] Profile.[id number] Name Value Range Interpretation Description Data Sup [...] s"> (0.0-0.3 MG/DL)</content> ID Date Data Source HematologyRou.[id number] 04/17/2019 04:17:00 PM EDT [facility] 0400 Name Value Range Interpretation Description [...] mean 80.0-100 <content Saint corpuscular .0 styleCode="Bold Ceht volume [Entitic ">Mean Medical volume] by Corpuscular [...] ics"> (1.6-4.9 %)</content> ID Date Data Source GFR(Creatinine).[id number] 04/17/2019 04:17:00 PM EDT [facility] 0-0400 Name Value Range Interpretation Code Description Data Venecia rce(s) Supporting Document(s ) UNK > 60 <content [facility] styleCode="Bold"> Medical Cent er EGFR </content>127 GFR<content styleCode="Italic s"> (> 60 GFR)</content> ID Date Data Source STEVEMROUTINECCDA.[id number] 04/17/2019 04:17:00 PM EDT [facility] -0400 Name Value Range Interpretation Description Data Sup porting Code Source(s) Document(s ) UNK 30-110 <content [facility] styleCode="Bold Medical ">Amylase Center </content>76 IU/L<content styleCode="Ital ics"> (30-110 IU/L)</content> Lipase 23-300 <content [facility] [Enzymatic styleCode="Bold Medical activity/vo ">Lipase Center lume] in </content>165 Serum or IU/L<content Plasma styleCode="Ital ics"> (23-300 IU/L)</content> ID Date Data Source [facility].[id number] 04/17/2019 04:17:00 PM EDT [facility] Name Value Range Interpretation Description Data Sup porting Code Source(s) Document(s ) Sodium 137-145 <content Saint [Moles/volume] in styleCode="Bold"> Hong phs Serum or Plasma Sodium Medical </content>138 Center MEQ/L<content styleCode="Italic s"> (137-145 MEQ/L)</content> Carbon dioxide, 22-30 <content Saint total styleCode="Bold"> Chet [Moles/volume] in Carbon Dioxide Medical Serum or Plasma </content>23 Center MEQ/L<content styleCode="Italic s"> (22-30 MEQ/L)</content> Potassium <content Saint [Moles/volume] in styleCode="Bold"> [facility] Serum or Plasma Potassium Medical </content>Test Center [...] Never Smoker eCW3 ([facility] 12:00:00 AM [facility]) Smoking 01/23/2019 Never Smoker completed Never Smoker eCW3 ([facility] 12:[facility]:00 AM [facility]) Smoking 09/25/2018 Denies Ever completed Denies Ever [...] enter Never Smoker completed Never Smoker eCW3 ([facility]) Never Smoker completed Never Smoker eCW3 ([facility]) Vital Signs ID Date Data Source UNK Name Value Range Interpretation Code Description Data Source(s) Body temperature 36.147174 36.589962 [facility] Respiratory rate 20 /min 20 /min [facility] Heart rate 75 /min 75 /min [facility] Diastolic blood 56 mm[Hg] 56 mm[Hg] [facility] Systolic blood 109 mm[Hg] 109 mm[Hg] [facility] Body weight 86.051019 kg 86.281775 kg [facility] Body temperature 36.299575 36.568626 [facility] Respiratory rate 18 /min 18 /min [facility] Oxygen saturation 99 % 99 % [facility] in Arterial blood [facility] Center by Pulse oximetry Heart rate 86 /min 86 /min [facility] Body height 164.425695 164.745824 cm [facility] Center Diastolic blood 70 mm[Hg] 70 mm[Hg] [facility] pressure Medical Center Systolic blood 133 mm[Hg] 133 mm[Hg] [facility] Body mass index 31.5 kg/m2 31.5 kg/m2 [facility] (BMI) [Ratio] [facility] Diastolic blood 72 mm[Hg] 72 mm[Hg] eCW3 ([facility]) Systolic blood 112 mm[Hg] 112 mm[Hg] eCW3 ([facility]) Body temperature 98.4 [degF] 98.4 [degF] eCW3 ( [facility]) Body mass index 34.89 kg/m2 34.89 kg/m2 eCW3 ([facility] (BMI) [Ratio] [facility]) Body weight 197 [lb_av] 197 [lb_av] eCW3 ([facility]) Body height 63 [in_i] 63 [in_i] eCW3 ([facility]) Diastolic blood 70 mm[Hg] 70 mm[Hg] eCW3 ([facility]) Systolic blood 118 mm[Hg] 118 mm[Hg] eCW3 ([facility]) Body temperature 98.2 [degF] 98.2 [degF] eCW3 ( [facility]) Body mass index 36.31 kg/m2 36.31 kg/m2 eCW3 ([facility] (BMI) [Ratio] [facility]) Body weight 205 [lb_av] 205 [lb_av] eCW3 ([facility]) Body height 63 [in_i] 63 [in_i] eCW3 ([facility]) Body weight 86.497448 kg 86.103782 kg [facility] Body temperature 36.615985 36.131411 [facility] Respiratory rate 17 /min 17 /min [facility] Oxygen saturation 100 % 100 % [facility] in Arterial blood [facility] Center by Pulse oximetry Heart rate 79 /min 79 /min [facility] Body height 165.980418 165.995099 cm [facility] Medical Center Diastolic blood 70 mm[Hg] 70 mm[Hg] [facility] pressure Medical Center Systolic blood 138 mm[Hg] 138 mm[Hg] [facility] pressure [facility] Center Body mass index 31.6 kg/m2 31.6 kg/m2 [facility] (BMI) [Ratio] [facility] Body weight 65.929861 kg 65.968400 kg [facility] Measured Medical Center Body temperature 36.335847 36.060857 [facility] Respiratory rate 18 /min 18 /min [facility] Deprecated Oxygen 98 % 98 % [facility] saturation in Medical [facility] Capillary blood by Oximetry Heart rate 65 /min 65 /min [facility] Body height 160.053689 160.407649 cm [facility] cm Medical Center Systolic blood 65 mm[Hg] 65 mm[Hg] [facility] pressure [facility] Center Diastolic blood 138 mm[Hg] 138 mm[Hg] [facility] pressure [facility] Center Body mass index 25.6 kg/m2 25.6 kg/m2 [facility] (BMI) [Ratio] [facility] Patient Treatment Plan of Care Planned Activity Planned Date Details Description Data Source (s) Betamethasone 0.5 MG/ML / 01/23/2019 12:00:00 eCW3 ([employer] Clotrimazole 10 MG/ML [facility]) Topical Cream Betamethasone 0.5 MG/ML / 01/23/2019 12:00:00 eCW3 ([employer] Clotrimazole 10 MG/ML [facility]) Topical Cream Amoxicillin 500 MG Oral July t [facility] Medical Capsule Center Acetaminophen 325 MG Oral Sa int [facility] Medical Tablet [Tylenol] Center Cephalexin 500 MG Oral [facility] Capsule [place]
[2020-07-08 01:20] VITALS: BMI 39.9
[2020-07-08] MEDS ORDERED: OXYTOCIN 20 UNITS in 0.9% NS 20 UNIT/1,000 ML INFUS.BAG IV ONE ×2 (07:41→09:29)
--- NOTE | 2020-07-08 07:54 | PN ---
Progress Note (short form) - Note Progress Note: cx 2 cm 80 ,vx -2 , fhr cat 1, irregular contraction, AROM, clear . fhr cat 1 cervidil removed , pitocin discused , risks explained, agreed to start pitocin Problem List - Problems (1) , post-term Code(s): O48.0 - POST-TERM (2) Abdominal pain affecting Code(s): O26.899 - OTH RELATED CONDITIONS, UNSPECIFIED TRIMESTER; R10.9 - UNSPECIFIED ABDOMINAL PAIN (3) Elective induction of labor planned Code(s): [id number] -
[2020-07-08] MEDS ORDERED: OXYTOCIN 30 UNITS in 0.9% NS 30 UNIT/500 ML INFUS.BAG IVPB SCH (08:00)
[2020-07-08] MEDS: ELECTROLYTE-148 SOLN 1,000 ML IV SCH ×2 (08:30→10:00)
[2020-07-08] MEDS ORDERED: FENTANYL/BUPIVACAINE/NS/PF - PCEA - 50 ML DISP.SYRIN EP ONE ×3 (08:37→17:03)
[2020-07-08] MEDS ORDERED: PCA PUMP NR ONE ×2 (08:37→19:14)
[2020-07-08 09:12] LABS: POC NITRAZINE NEG
[2020-07-08] MEDS ORDERED: NALOXONE HCL 0.4 MG/ML VIAL IVPUSH PRN (09:59)
[2020-07-08] MEDS ORDERED: FENTANYL/BUPIVACAINE/NS/PF - PCEA - 50 ML DISP.SYRIN EP SCH ×2 (10:00→14:21)
--- NOTE | 2020-07-08 15:53 | PN ---
Progress Note (short form) - Note Progress Note: 3 cm ,70 vx -2 MR, FHR cat 1, contraction regular plan cont . pitocin Problem List - Problems (1) , post-term Code(s): O48.0 - POST-TERM (2) Abdominal pain affecting Code(s): O26.899 - OTH RELATED CONDITIONS, UNSPECIFIED TRIMESTER; R10.9 - UNSPECIFIED ABDOMINAL PAIN (3) Elective induction of labor planned Code(s): [id number] -
[2020-07-08] MEDS ORDERED: BUPIVACAINE HCL/PF 0.25% (2.5MG/ML) 10 ML VIAL ONE (17:58)
[2020-07-08] MEDS ORDERED: CITRIC ACID/SODIUM CITRATE 30 ML UNIT-DOSE CUP PO ONE (18:36)
--- NOTE | 2020-07-08 18:36 | PN ---
Progress Note (short form) - Note Progress Note: cx 5 cm, 70 vx -2 mr, fhr cat 2 with deep variable , average variability ,since delivery not near and continuous variability . advised c/s, risks discussed , pitocin stopped Problem List - Problems (1) , post-term Code(s): O48.0 - POST-TERM (2) Abdominal pain affecting Code(s): O26.899 - OTH RELATED CONDITIONS, UNSPECIFIED TRIMESTER; R10.9 - UNSPECIFIED ABDOMINAL PAIN (3) Elective induction of labor planned Code(s): [id number] -
[2020-07-08] MEDS ORDERED: morphine SULFATE/PF 0.5 MG/ML (2cc Syringe - QUVA) ONE (18:40)
[2020-07-08] MEDS ORDERED: ceFAZolin SODIUM 1 GM VIAL ONE (18:41)
[2020-07-08] MEDS ORDERED: OXYTOCIN 10 UNITS/ML VIAL ONE (19:34)
[2020-07-08] MEDS ORDERED: IBUPROFEN 600 MG TABLET (FP) PO PRN (19:39)
[2020-07-08] MEDS ORDERED: ONDANSETRON 4 MG/2 ML VIAL IVPUSH PRN (19:39)
[2020-07-08] MEDS ORDERED: KETOROLAC TROMETHAMINE 30 MG/1 ML VIAL ONE (19:59)
[2020-07-08] MEDS ORDERED: BENZOCAINE 28 GM HEMORRHOIDAL OINTMENT PR PRN (20:23)
[2020-07-08] MEDS ORDERED: oxyCODONE HCL 5 MG TABLET PO PRN (20:23)
[2020-07-08] MEDS ORDERED: BENZOCAINE 20% 57 GM BOTTLE TP PRN (20:23)
[2020-07-08] MEDS ORDERED: METHYLERGONOVINE MALEATE 0.2 MG/1 ML AMP IM PRN (20:23)
[2020-07-08] MEDS ORDERED: diphenhydrAMINE HCL 25 MG CAPSULE (FP) PO PRN (20:23)
[2020-07-08] MEDS ORDERED: WITCH HAZEL 50% (TUCKS) 40 PAD/JAR PAD TP PRN (20:23)
--- NOTE | 2020-07-08 20:27 | OP ---
Operative Note - Note: Operative Date: 07/08/20 Pre-Operative Diagnosis: post date , labor, non reassuring FHR, cat 2 tracing Operation: primary LST c/s Findings: live baby girl op , 8/9, clear fluid, ovaries and tube normal Surgeon: Anand Rodriguez Juvenile Corrections Officer: Horace Bustamante Anesthesia: Spinal Specimens Removed: placenta Estimated Blood Loss (mls): 500 Drains & Tubes with Location: [place] Blood Volume Replaced (mls): 0
[2020-07-08] MEDS ORDERED: OXYTOCIN 20 UNITS in 0.9% NS 20 UNIT/1,000 ML INFUS.BAG IV SCH (20:30)
[2020-07-08] MEDS ORDERED: DEXTROSE 5%-LACTATED RINGERS 1,000 ML IV SCH (20:30)
[2020-07-08 22:47] LABS: CORD HCO3 24.4 mmHg (20-29); CORD PCO2 77.4 mmHg (30-78); CORD pH 7.117 (7.14-7.44)
[2020-07-08 22:48] LABS: CORD HCO3 21.6 mmHg (20-29); CORD PCO2 56.7 mmHg (30-78); CORD pH 7.199 (7.14-7.44)
[2020-07-09] MEDS: CEFAZOLIN 1 GM/D5W 1 GM/50 ML BAG IVPB SCH ×2 (01:58→10:05)
--- NOTE | 2020-07-09 07:10 | PN ---
Post Progress Note - Subjective Subjective: Panchal in place, not ambulating, tolerating PO, baby at bedside Post Day: 1 Type of Delivery: Primary C/S Vital Signs: Vital Signs Temperature 98.7 F 07/09/20 06:00 Pulse Rate 85 07/09/20 06:00 Respiratory Rate 18 07/09/20 06:00 Blood Pressure 104/40 L 07/09/20 06:00 O2 Sat by Pulse Oximetry (%) 99 07/08/20 22:00 Breast Exam: Yes: Other Uterus: Yes: Fundus Firm Incision: Yes: Dressing dry and intact, Glen intact Abdomen/GI: Yes: Abdomen soft Lochia, amount: Small Extremities: Yes: Calves non-tender Perineum: Yes: Intact Activity: Ambulating - Labs Labs: CBC WBC 10.4 K/mm3 (4.0-10.0) H 07/07/20 23:10 RBC 3.91 M/mm3 (3.60-5.2) 07/07/20 23:10 Hgb 10.1 GM/dL (10.7-15.3) L 07/07/20 23:10 Hct 30.2 % (32.4-45.2) L 07/07/20 23:10 MCV 77.3 fl (80-96) L 07/07/20 23:10 MCH 25.9 pg (25.7-33.7) D 07/07/20 23:10 MCHC 33.5 g/dl (32.0-36.0) 07/07/20 23:10 RDW 16.8 % (11.6-15.6) H 07/07/20 23:10 Plt Count 163 K/MM3 (134-434) 07/07/20 23:10 MPV 9.9 fl (7.5-11.1) 07/07/20 23:10 Absolute Neuts (auto) 8.1 K/mm3 (1.5-8.0) H 07/07/20 23:10 Neutrophils % 78.3 % (42.8-82.8) 07/07/20 23:10 Lymphocytes % 15.4 % (8-40) 07/07/20 23:10 Monocytes % 5.6 % (3.8-10.2) 07/07/20 23:10 Eosinophils % 0.6 % (0-4.5) 07/07/20 23:10 Basophils % 0.1 % (0-2.0) 07/07/20 23:10 Nucleated RBC % 0 % (0-0) 07/07/20 23:10 Assessment/Plan POD # 1 in stable condition -Continue care -F/U CBC -Encourage ambulation -Anticipate D/C home on POD # 3
[2020-07-09] MEDS: IBUPROFEN 800 MG/8 ML IJ IVPB PRN ×2 (08:09→15:47)
[2020-07-09 08:39] LABS: BASO % 0.1 % (0-2.0); EOS % 0.4 % (0-4.5); HEMATOCRIT 30.2 % (32.4-45.2); HEMOGLOBIN 9.7 GM/dL (10.7-15.3); LYMPH % 8.8 % (8-40); MCH 25.4 pg (25.7-33.7); MCHC 32.3 g/dl (32.0-36.0); MEAN CELL VOLUME 78.6 fl (80-96); MEAN PLT VOLUME 10.2 fl (7.5-11.1); MONO % 6.9 % (3.8-10.2); NEUT % 83.8 % (42.8-82.8); PLATELET COUNT 140 K/MM3 (134-434); RBC 3.84 M/mm3 (3.60-5.2); RDW 16.9 % (11.6-15.6); WHITE BLOOD COUNT 11.7 K/mm3 (4.0-10.0)
[2020-07-09] MEDS: ENOXAPARIN NA (PORCINE) 40 MG/0.4 ML DISP.SYRIN SQ SCH (10:06)
[2020-07-09] MEDS ORDERED: BISACODYL 10 MG SUPP.RECT PR PRN (20:23)
[2020-07-09] MEDS: oxyCODONE HCL 5 MG TABLET PO PRN (21:10)
[2020-07-09] MEDS: SENNOSIDES/DOCUSATE COMBO (SENNA PLUS) TABLET (UD) PO PRN (21:10)
[2020-07-09] MEDS: SIMETHICONE 80 MG TAB.CHEW (FP) PO PRN (21:10)
[2020-07-09] MEDS: IBUPROFEN 600 MG TABLET (FP) PO PRN (21:11)
[2020-07-09] MEDS: ACETAMINOPHEN 325 MG TABLET (FP) PO PRN (23:20)
[2020-07-10] MEDS: oxyCODONE HCL 5 MG TABLET PO PRN ×4 (05:52→23:40)
[2020-07-10] MEDS: ACETAMINOPHEN 325 MG TABLET (FP) PO PRN ×2 (05:53→23:41)
[2020-07-10] MEDS: SIMETHICONE 80 MG TAB.CHEW (FP) PO PRN ×2 (05:53→23:40)
--- NOTE | 2020-07-10 09:42 | PN ---
Post Progress Note - Subjective Subjective: Ambulating, tolerating PO, lochia decreased, passing flatus. Post Day: 2 Type of Delivery: Primary C/S Vital Signs: Vital Signs Temperature 98.7 F 07/10/20 09:31 Pulse Rate 98 H 07/09/20 21:16 Respiratory Rate 18 07/10/20 09:31 Blood Pressure 104/51 L 07/10/20 09:31 O2 Sat by Pulse Oximetry (%) 99 07/08/20 22:00 Breast Exam: Yes: Other Uterus: Yes: Fundus Firm Incision: Yes: Glen intact Abdomen/GI: Yes: Abdomen soft Lochia: Yes: Rubra Lochia, amount: Small Extremities: Yes: Calves non-tender Perineum: Yes: Intact Activity: Ambulating - Labs Labs: CBC WBC 11.7 K/mm3 (4.0-10.0) H 07/09/20 07:45 RBC 3.84 M/mm3 (3.60-5.2) 07/09/20 07:45 Hgb 9.7 GM/dL (10.7-15.3) L 07/09/20 07:45 Hct 30.2 % (32.4-45.2) L 07/09/20 07:45 MCV 78.6 fl (80-96) L 07/09/20 07:45 MCH 25.4 pg (25.7-33.7) L 07/09/20 07:45 MCHC 32.3 g/dl (32.0-36.0) 07/09/20 07:45 RDW 16.9 % (11.6-15.6) H 07/09/20 07:45 Plt Count 140 K/MM3 (134-434) 07/09/20 07:45 MPV 10.2 fl (7.5-11.1) 07/09/20 07:45 Absolute Neuts (auto) 9.8 K/mm3 (1.5-8.0) H 07/09/20 07:45 Neutrophils % 83.8 % (42.8-82.8) H 07/09/20 07:45 Lymphocytes % 8.8 % (8-40) D 07/09/20 07:45 Monocytes % 6.9 % (3.8-10.2) 07/09/20 07:45 Eosinophils % 0.4 % (0-4.5) 07/09/20 07:45 Basophils % 0.1 % (0-2.0) 07/09/20 07:45 Nucleated RBC % 0 % (0-0) 07/09/20 07:45 Assessment/Plan POD # 2 in stable condition -Continue inpatient care -Anticipate D/C home tomorrow
[2020-07-10] MEDS: ENOXAPARIN NA (PORCINE) 40 MG/0.4 ML DISP.SYRIN SQ SCH (09:44)
[2020-07-10] MEDS: IBUPROFEN 600 MG TABLET (FP) PO PRN ×2 (09:49→16:15)
--- NOTE | 2020-07-10 14:01 | PN ---
Progress Note (short form) - Note Progress Note: 30 F s/p C/S +DM. pt doing well. pain controlled. good result of anesthetic care.
[2020-07-10] MEDS: SENNOSIDES/DOCUSATE COMBO (SENNA PLUS) TABLET (UD) PO PRN (23:39)
[2020-07-11] MEDS: ACETAMINOPHEN 325 MG TABLET (FP) PO PRN (06:41)
[2020-07-11] MEDS: IBUPROFEN 600 MG TABLET (FP) PO PRN (06:41)
[2020-07-11] MEDS: SIMETHICONE 80 MG TAB.CHEW (FP) PO PRN (06:42)
--- NOTE | 2020-07-11 07:10 | DS ---
Physical Examination Vital Signs: Vital Signs Temperature 98.1 F 07/10/20 20:55 Pulse Rate 73 07/10/20 20:55 Respiratory Rate 20 07/10/20 20:55 Blood Pressure 90/55 L 07/10/20 20:55 O2 Sat by Pulse Oximetry (%) 99 07/08/20 22:00 Findings/Remarks: Ambulating, tolerating Po, lochia decreased, passing flatus, voiidng, PP/post-op instructions and precautions explained and all questions answered. Constitutional: Yes: No Distress HENT: Yes: Atraumatic Neck: Yes: Supple Cardiovascular: Yes: Regular Rate and Rhythm Respiratory: Yes: Regular Gastrointestinal: Yes: Normal Bowel Sounds, Soft ...Rectal Exam: Yes: Other Renal/: Yes: Other Breast(s): Yes: Other Musculoskeletal: Yes: WNL Extremities: Yes: WNL Edema: Yes Edema: LLE: Trace, RLE: Trace Integumentary: Yes: WNL Wound/Incision: Yes: Clean/Dry, Well Approximated, Glen Intact Neurological: Yes: Alert, Oriented ...Motor Strength: WNL Psychiatric: Yes: Alert, Oriented Labs: CBC, BMP 07/09/20 07:45 07/07/20 23:10 Discharge Summary Problems reviewed: Yes Reason For Visit: Elective induction Current Active Problems Abdominal pain affecting (Acute) Elective induction of labor planned (Acute) , post-term (Acute) Procedures: Principal: [facility] Hospital Course: Uncomplicated post-op recovery Plan of Treatment: Follow up within a week of discharge for incision check and staple removal Condition: Stable - Instructions Diet, Activity, Other Instructions: Return to regular diet as tolerated. Avoid strenuous activity until cleared by MD. Take medications as prescribed and follow instructions given, call health center with any questions or concerns. Referrals: Sina Hermosillo MD [Staff Physician] - Anand Rodriguez MD [Staff Physician] - Disposition: HOME - Home Medications Comprehensive Discharge Medication List: Ambulatory Orders Tablet 1 tab PO DAILY 07/06/20 Acetaminophen [Tylenol] 650 mg PO Q6H PRN #30 capsule MDD 5 07/10/20 Ibuprofen 600 mg PO Q6H PRN #30 tablet 07/10/20 Oxycodone HCl [Roxicodone] 5 mg PO Q6H PRN 3 Days #12 tablet MDD 5 07/10/20
[2020-07-11] MEDS: ELECTROLYTE-148 SOLN 1,000 ML IV SCH (08:30)
[2020-07-11] MEDS: ENOXAPARIN NA (PORCINE) 40 MG/0.4 ML DISP.SYRIN SQ SCH (09:33)
[2020-07-11 09:47] VITALS: BP 83/60; PULSE 77; TEMP 98.3
[2020-07-11 10:03] LABS: BASO % 0.2 % (0-2.0); EOS % 1.2 % (0-4.5); HEMATOCRIT 29.5 % (32.4-45.2); HEMOGLOBIN 9.5 GM/dL (10.7-15.3); MCH 25.3 pg (25.7-33.7); MCHC 32.4 g/dl (32.0-36.0); MEAN PLT VOLUME 10.4 fl (7.5-11.1); MONO % 6.6 % (3.8-10.2); PLATELET COUNT 188 K/MM3 (134-434); RBC 3.78 M/mm3 (3.60-5.2); RDW 17.1 % (11.6-15.6); WHITE BLOOD COUNT 8.7 K/mm3 (4.0-10.0)
--- NOTE | 2020-07-11 20:19 | OP ---
DATE OF OPERATION: 07/08/2020 PREOPERATIVE DIAGNOSIS: Postdates , Cervidil induction, nonreassuring heart rate and failure to dilate. POSTOPERATIVE DIAGNOSIS: Postdates , Cervidil induction, nonreassuring heart rate and failure to dilate. PROCEDURE: Primary low segment transverse section. SURGEON: Miguelito Rodriguez MD. PERSONAL DRIVER: SERGIO Go. ANESTHESIA: Spinal. ESTIMATED BLOOD LOSS: 500 mL. FINDINGS: A live baby Apgars 8 and 9. Clear amniotic fluid. Both ovaries and tubes are normal. Baby girl occiput posterior. OPERATION: Patient was taken to operating room with adequate spinal anesthesia. Abdomen and perineum were prepped and draped. Pfannenstiel abdominal skin incision was made. Abdominal wall was cut layer by layer until the peritoneum was exposed and incised. Upon entering the abdominal cavity, the lower uterine segment was identified, and uterovesical fold of the peritoneum was established. The bladder was pushed down. Two lap pads were placed in the both gutters. A low transverse incision was made. The incision extended laterally with bandage scissors. Amniotic sac was entered. Clear fluid. Head delivered from occiput posterior position. Nasopharynx was suctioned. A live baby girl was delivered, Apgars 8 and 9. Placenta was delivered manually. Uterine cavity was cleared of all remaining tissue. Uterine incision was closed in 2 layers, the 1st layer with 0 Biosyn continuous suture, the 2nd layer with 0 Biosyn imbricating the 1st layer. Bladder flap was closed with 0 Biosyn continuous suture. Both tubes and ovaries were checked and were normal. No active bleeding was seen. All the lap, sponge, and instrument counts were correct. Peritoneum was closed with 0 Biosyn continuous suture. Muscles were brought together interrupted suture with 0 Biosyn. Fascia was closed with 0 Biosyn continuous sutures. Subcutaneous fat with interrupted sutures 0 Biosyn, and the skin was closed with gurdeep. The patient tolerated the procedure well and left the OR in good condition. MIGUELITO RODRIGUEZ M.D. /[id number]
--- NOTE | 2020-07-15 19:30 | PATH ---
Surgical Pathology Report Patient Name: KALLIE ZARATE Med. Rec. 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 Specimen(s) Received PLACENTA Clinical History Nonreassuring heart tones, primary Final Diagnosis PLACENTA: THIRD TRIMESTER PLACENTA WITH FOCALLY INCREASED INTERVILLOUS FIBRIN DEPOSITION. TRIVASCULAR CORD. MEMBRANES WITH NO DIAGNOSTIC ABNORMALITIES. Electronically Signed aCthy Curran M.D. Gross Description The specimen is received fresh labeled placenta and is a 334 gram, 18.0 x 15.0 x 1.6 cm. placenta with attached membranes and umbilical cord. The attached membranes are gallo, translucent with focal opacities and insert marginally. The umbilical cord measures 13 cm. in length and averages 1.1 cm. in diameter. The cord inserts centrally. No true knots or strictures are identified. Cut surface of the umbilical cord reveals 3 vessels. The surface is comer-blue with minimal fibrin deposition and appropriate caliber vessels. The maternal surface is red-brown with focal defects. Sectioning reveals red-brown, spongy parenchyma. No lesions are identified. Business Data Analyst sections are submitted in three cassettes as follows: 1- membrane rolls and umbilical cord; 2-3- full thickness sections of placenta. /07/13/2020 [facility]07/13/2020
== END 2020-07-11 11:40 | disposition home or self-care (01) | DRG 540 ==
LOC: JDEL 21:21 → JLDR 22:15 → J3W 07-08 22:00
PROVIDERS: ADMIT Obstetrics & Gynecology; ATTEND Obstetrics & Gynecology
PROC: 3E0P7VZ Introduction of Hormone into Female Reproductive, Via Natural or Artificial Opening (ICD-10-PCS; 2020-07-07)
PROC: 10D00Z1 Extraction of Products of Conception, Low, Open Approach (ICD-10-PCS; principal; 2020-07-08)
PROC: 10907ZC Drainage of Amniotic Fluid, Therapeutic from Products of Conception, Via Natural or Artificial Opening (ICD-10-PCS; 2020-07-08)
PROC: 3E033VJ Introduction of Other Hormone into Peripheral Vein, Percutaneous Approach (ICD-10-PCS; 2020-07-08)
DX: O48.0 Post-term pregnancy (principal); O76 Abnormality in fetal heart rate and rhythm complicating labor and delivery; O62.0 Primary inadequate contractions; O32.4XX0 Maternal care for high head at term, not applicable or unspecified; O26.893 Other specified pregnancy related conditions, third trimester; R10.9 Unspecified abdominal pain; O99.02 Anemia complicating childbirth; D64.9 Anemia, unspecified; Z3A.40 40 weeks gestation of pregnancy; Z37.0 Single live birth
CPT/HCPCS: 36415; 36600; 80048; 82803; 83986-QW; 85025; 85610; 85730; 86780; 86850; 86900; 86901; 87389; 88307-TC; U0003

== ENCOUNTER 2022-09-11 09:29 | Emergency (ER) | payer OTHER ==
[2022-09-11] MEDS ORDERED: METOCLOPRAMIDE HCL INJECTION 10 MG/2 ML VIAL IVPUSH ONE (10:07)
[2022-09-11] MEDS ORDERED: ACETAMINOPHEN 1000 MG/100 ML BAG IVPB ONE (10:07)
[2022-09-11] MEDS ORDERED: SODIUM CHLORIDE 0.9% 1000 ML INFUS.BAG IV ONE (10:07)
[2022-09-11 10:16] VITALS: BP 115/82; PULSE 76; RESP 18; TEMP 97.9; BMI 35.7
[2022-09-11] MEDS ORDERED: METOCLOPRAMIDE HCL INJECTION 10 MG/2 ML VIAL ONE (10:35)
[2022-09-11] MEDS ORDERED: ACETAMINOPHEN INJECTION 100 ML IVPB ONE (10:36)
== END 2022-09-11 14:59 | disposition home or self-care (01) ==
LOC: JER 09:29
PROC: 3E033GC Introduction of Other Therapeutic Substance into Peripheral Vein, Percutaneous Approach (ICD-10-PCS; principal; 2022-09-11)
DX: R51.9 Headache, unspecified (principal)
CPT/HCPCS: 0241U-QW; 70450-TC; 84703; 99285-25